=== PATIENT | female | born 1985 | race Caucasian/White ===

== ENCOUNTER 2024-03-31 09:16 | Emergency (ER) | payer OTHER ==
[~2024-03-31] VITALS: Ht 175.3 cm; Wt 88.6 kg
[2024-03-31] MEDS ORDERED: WELLBUTRIN XL300 M1 PO (09:21)
[2024-03-31] MEDS ORDERED: Albuterol 0.083% Nebule (2.5 MG/3 ML) IH ONE (09:45)
[2024-03-31 10:45] VITALS: BP 116/75
== END 2024-03-31 10:20 | disposition home or self-care (01) ==
LOC: ED 09:16
DX: J06.9 Acute upper respiratory infection, unspecified (principal)